=== PATIENT | female | born 1980 | race Caucasian/White ===

== ENCOUNTER 2019-12-12 10:51 | Outpatient (CLI) | payer OTHER ==
--- NOTE | 2019-12-12 11:35 | XRAY Report ---
PROCEDURE: Ankle 3 View LT INDICATIONS: ANKLE PAIN,LEFT TECHNIQUE: 3 views of the ankle were acquired. COMPARISON: None FINDINGS: Bones: Subtle irregularity of the inferior lateral malleolar tip may represent avulsion fracture. Bon es are otherwise intact. There is [id number] osteoarthritic change in the anterior and medial m ortise with joint space narrowing and marginal osteophytosis. Plantar calcaneal enthesophyte. Soft tissues: No tibiotalar joint effusion. Achilles tendon appears normal. IMPRESSION: Subtle irregularity of the inferior lateral malleolar tip may represent avulsion fracture. [id number] anterior and medial tibiotalar osteoarthritic change. Reviewed by: Phillip Judd MD on 12/12/2019 11:34 AM PDT Approved by: Phillip Judd MD on 12/12/2019 11:34 AM PDT Station ID: [id number]
== END 2019-12-12 10:52 | disposition home or self-care (01) ==
LOC: DI.S 10:51
PROVIDERS: ATTEND Physician Assistant
DX: M19.072 Primary osteoarthritis, left ankle and foot (principal)